=== PATIENT | male | born 1985 | race Caucasian/White ===

== ENCOUNTER 2016-08-04 10:14 | Emergency (ER) | payer MEDICAID ==
[2016-08-04 10:30] VITALS: BP 124/79; PULSE 131; RESP 16; TEMP 98.2; O2SAT 96
[2016-08-04] MEDS ORDERED: TDAP ADULT 0.5 ML INJ (BOOSTRIX) IM ONE (10:36)
--- NOTE | 2016-08-04 10:42 | CPEKG ---
Heart Rate: 122 RR Interval: 492 P-R Interval: 116 QRSD Interval: 100 QT Interval: 324 QTC Interval: 462 P Skidmore: 45 QRS [place]: 60 T Wave [place]: -16 EKG Severity - BORDERLINE ECG - EKG Impression: SINUS TACHYCARDIA EKG Impression: INFERIOR Q WAVES, PROBABLY NORMAL VARIATION EKG Impression: BORDERLINE T ABNORMALITIES, INFERIOR LEADS Electronically Signed By: Gerard Yu 04-Aug-2016 10:58:15
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
== END 2016-08-04 11:05 | disposition home or self-care (01) ==
LOC: EDUNIT#
DX: S29.9XXA Unspecified injury of thorax, initial encounter (principal); F17.200 Nicotine dependence, unspecified, uncomplicated; T75.4XXA Electrocution, initial encounter; Z23 Encounter for immunization; X58.XXXA Exposure to other specified factors, initial encounter

== ENCOUNTER 2018-02-25 20:38 | Emergency (ER) | payer OTHER ==
[2018-02-25 20:46] VITALS: BP 123/78
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
== END 2018-02-25 21:29 ==
PROC: 0HQ1XZZ Repair Face Skin, External Approach (ICD-10-PCS; principal; 2018-02-25)
DX: S01.112A Laceration without foreign body of left eyelid and periocular area, initial encounter (principal); Y04.0XXA Assault by unarmed brawl or fight, initial encounter; Y92.149 Unspecified place in prison as the place of occurrence of the external cause